=== PATIENT | female | born 1985 ===

== ENCOUNTER 2022-03-03 08:44 | Inpatient (IN) | payer BC ==
[2022-03-03] MEDS ORDERED: Nalbuphine HCl 10 MG/ 1ML Amp IVPUSH PRN (10:04)
[2022-03-03] MEDS ORDERED: Sodium Chloride 0.9% 10 ML Syringe FLUSH PRN (10:04)
[2022-03-03] MEDS ORDERED: Oxytocin/Lactated Ringers 10 UNIT/1,000 ML BAG IV SCH (10:15)
[2022-03-03] MEDS ORDERED: Lactated Ringers 1,000 ML IV SCH (10:15)
[2022-03-03] MEDS ORDERED: Witch Hazel Medicated Pads 40/Jar TOP PRN (11:24)
[2022-03-03] MEDS ORDERED: Benzocaine/Menthol 20%-0.5% Spray 78 GM Cannister TOP PRN (11:24)
[2022-03-03] MEDS ORDERED: Ibuprofen 600 MG Tab PO PRN (20:04)
[2022-03-03] MEDS ORDERED: Sodium Chloride 0.9% 10 ML Syringe FLUSH SCH (21:00)
== END 2022-03-05 10:49 | disposition home or self-care (01) | DRG 560 ==
LOC: JD.OBCHECK 08:44 → JD.OB 08:46 → JD.OBCHECK 09:13 → JD.OB 09:20
PROVIDERS: ADMIT Obstetrics & Gynecology; ATTEND Obstetrics & Gynecology
PROC: 10E0XZZ Delivery of Products of Conception, External Approach (ICD-10-PCS; principal; 2022-03-03)
PROC: 10907ZC Drainage of Amniotic Fluid, Therapeutic from Products of Conception, Via Natural or Artificial Opening (ICD-10-PCS; 2022-03-03)
DX: O80 Encounter for full-term uncomplicated delivery (principal); Z37.0 Single live birth; Z3A.39 39 weeks gestation of pregnancy
CPT/HCPCS: 36415; 59025; 59409; 82947; 85025; 86592; A9270-GY